=== PATIENT | male | born 1970 ===

== ENCOUNTER 2020-07-02 10:35 | Outpatient (CLI) | payer OTHER | END 2020-07-02 14:02 | disposition home or self-care (01) | LOC: OFIC 805 10:35 | PROVIDERS: ATTEND Otolaryngology Otology & Neurotology | DX: H90.42 Sensorineural hearing loss, unilateral, left ear, with unrestricted hearing on the contralateral side (principal); D33.3 Benign neoplasm of cranial nerves ==

== ENCOUNTER 2020-08-22 05:49 | Day surgery (SDC) | payer OTHER ==
[~2020-08-22 05:49] MED LIST: DORZOLAMIDE; [UNRECOGNIZED DRUG - OTHER]
== END 2020-08-22 11:05 | disposition home or self-care (01) ==
LOC: CIR.AMB 05:49
PROVIDERS: ATTEND Otolaryngology Otology & Neurotology
DX: H65.22 Chronic serous otitis media, left ear (principal); H90.12 Conductive hearing loss, unilateral, left ear, with unrestricted hearing on the contralateral side; Z20.822 Contact with and (suspected) exposure to COVID-19